=== PATIENT | female | born 1970 | race Caucasian/White ===

== ENCOUNTER 2021-05-15 06:30 | Emergency (ER) | payer BC, OTHER | END 2021-05-15 07:30 | disposition home or self-care (01) | LOC: BURERS 06:30 | DX: M25.562 Pain in left knee (principal); M23.92 Unspecified internal derangement of left knee; I10 Essential (primary) hypertension; J45.909 Unspecified asthma, uncomplicated; Z79.899 Other long term (current) drug therapy ==